=== PATIENT | female | born 1985 | race Caucasian/White ===

== ENCOUNTER 2020-01-03 09:16 | Inpatient (IN) | payer MEDICAID, SELFPAY ==
[2020-01-03 09:30] VITALS: BP 124/89; PULSE 129; RESP 18; TEMP 39.3; O2SAT 99; BMI 31.8
--- NOTE | 2020-01-03 09:43 | XR_ITS ---
EXAMINATION: XR CHEST CLINICAL INFORMATION: Fever COMPARISON: Previous chest x-ray March 2017 TECHNIQUE: Frontal view of the chest was obtained. FINDINGS: No significant abnormality is noted involving the heart, lungs, mediastinum, bony thorax or soft tissues. XR/XR chest 1V IMPRESSION: Unremarkable examination.
--- NOTE | 2020-01-03 09:48 | ED.FEMALEGU ---
HPI - Female Genitourinary General Chief complaint: Urogenital-Female Stated complaint: FEVER HEADACHE CHILLS Time Seen by Provider: 01/03/20 09:42 Source: patient Mode of arrival: ambulatory Limitations: no limitations History of Present Illness HPI Narrative: 34 yo female here with right sided mid to low back pain with fevers, chills, body aches x 5 days. Some urinary frequency. No dysuria/vomiting/diarrhea/abdominal pain. No shortness of breath/chest pain/cough or sore throat. 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 MD elicited complaint: flank pain Onset (ago): day(s) Severity: mild Female Urogenital Radiation: Non-Radiating Quality of pain: sharp Consistency: constant Vaginal discharge: none Vaginal bleeding: none Urinary symptoms: Frequency Exacerbating factors: none Relieving factors: none Associated symptoms: fever and chills Treatment prior to arrival: none Sexual activity: No Patient : No Related Data Home Medications Medication Instructions Recorded Confirmed No Known Home Meds 01/03/20 01/03/20 Allergies Allergy/AdvReac Type Severity Reaction Status Date / Time No Known Allergies Allergy Verified 01/03/20 10:18 Review of Systems Review of Systems: Yes all other systems are reviewed and are negative Constitutional: Constitutional: Reports no additional constitutional complaints, Reports body ache(s), Reports chills, Reports fever(s), Denies headache(s) and Denies weakness Eyes: Eyes: Reports no additional eye complaints and Denies change in vision ENT: Reports system reviewed and no additional complaints, except as documented, Denies dizziness, Denies headache(s), Denies nasal congestion, Denies nasal discharge and Denies neck pain Cardiovascular: Cardiovascular: Reports no additional cardiovascular complaints, Denies chest pain, Denies leg edema and Denies dyspnea Respiratory: Respiratory: Reports no additional respiratory complaints, Denies cough and Denies dyspnea Gastrointestinal: Gastrointestinal: Reports no additional gastrointestinal complaints, Denies abdominal pain, Denies diarrhea, Denies nausea and Denies vomiting Genitourinary: Genitourinary: Reports no additional female genitourinary complaints, Denies dysuria, Reports flank pain, Denies urinary incontinence and Denies vaginal discharge Musculoskeletal: Musculoskeletal: Reports no additional musculoskeletal complaints, Reports back pain, Denies arthralgias, Denies joint swelling, Denies neck pain, Denies numbness and Denies tingling Integumentary/Breasts: Skin/Breast: Reports system reviewed and no additional complaints, except as docu and Denies rash Neurologic: Reports system reviewed and no additional complaints, except as documented, Denies Abnormal speech present, Denies dizziness, Denies headache(s), Denies numbness, Denies tingling and Denies weakness PMFSH Past Medical History Attestation statement: The following information was validated with the patient. Source: obtained from family and nursing notes reviewed Social History Social History Alcohol intake: never Smoking Status: Never smoker Smoked in Last 30 Days: No Use of substances other than those prescribed or required for medical reasons: No Advance Directives: No Advance Directives Information Provided: No Physical Exam Vital Signs: Vital Signs: Last Vital Signs Temp 98.1 F 01/03/20 14:00 Pulse 110 H 01/03/20 14:00 Resp 16 01/03/20 14:00 BP 118/77 01/03/20 14:00 Pulse Ox 100 01/03/20 14:00 Body Mass Index 31.8 Const: General: cooperative, healthy appearing, comfortable and no acute distress Orientation/consciousness: patient oriented x3 Limitations: no limitations HENMT: Head: Yes normal to inspection Ears: hearing grossly normal bilaterally General nose exam: Normal external nose present Face and sinus: Yes normal facial exam Mouth: Normal oral and palatal mucosa present Throat: Yes posterior oropharynx normal Eyes: General: appearance normal, both eyes and all related structures Pupils: Equal, round and reactive pupils present Neck: Neck: Yes normal visual inspection Chest: Chest palpation & inspection: normal inspection of the chest Resp: Effort & Inspection: normal respiratory effort Auscultation: clear to auscultation bilaterally Cardio: Rate: regular rate Rhythm: regular rhythm Peripheral pulses: Peripheral pulses 2+ throughout GI: Inspection: Yes normal to inspection Palpation (GI): Soft to palpation and nontender Auscultation: normal bowel sounds : General: Yes CVA tenderness (right mild, more pain in right lower lumbar paraspinal area ) Back/Spine/Pelvis: Back: CVA tenderness (right mild, more pain in right lower lumbar paraspinal area ) Thoracic/Lumbar Spine: thoracic and lumbar spine normal to inspection Skin: General skin exam: no rashes or lesions noted Neuro: General: patient oriented x3, no focal motor deficits and normal sensation to monofilament Cranial nerves: Yes Equal, round and reactive pupils present Cognition (Neuro): normal cognition Speech: No Abnormal speech present Gait exam (Neuro): Normal gait present Motor exam (neuro): 5/5 motor strength present throughout Extrem: General: Yes normal to inspection Course Course Course Narrative: 34 yo female here with body aches, fevers, chills, and right lower back pain with occasional urinary frequency x 5 days. Arrival the patient is tachycardic and febrile. She does have some right CVA tenderness and right lower lumbar tenderness. No other exam findings. Will check labs including blood cultures and lactic acid. Will check UA, chest x-ray and viral panel. 1050- UA consistent with UTI. Consider pyelonephritis. CT ordered. At this time infection is suspected. Antibiotics ordered. 1200-Ct shows slight asymmetric fat stranding surrounding the right kidney and proximal ureter questionable for pyelonephritis. No stone, hydronephrosis or focal renal lesion seen. C/w with pyelonephritis. Will need admission. Call out to hospitalist to admit. 1215-Discussed patient with Dr Mann who accepted admission. MDM - Female Genitourinary MDM Narrative Medical decision making narrative: considered viral infection, COVID-19 infection, pneumonia, UTI, pyelonephritis Medical Records Attestation: I reviewed the patient's medical records. Lab Data Attestation: I reviewed the patient's lab results. Result diagrams: 01/03/20 09:57 01/03/20 09:57 Labs: Lab Results 01/03/20 01/03/20 01/03/20 Range/Units 09:57 09:57 09:57 WBC 7.9 (4.8-10.8) X10*3/uL RBC 4.36 (4.20-5.50) X10*6/uL Hgb 13.3 (12.0-16.0) g/dl Hct 39.9 (37-47) % MCV 91.5 (80-98) fL MCH 30.5 (27.0-33.0) pg MCHC 33.3 (31.0-35.0) g/dl RDW 11.7 (11.0-16.0) % Plt Count 282 (160-400) X10*3/uL MPV 8.7 L (9.4-12.3) fL Immature Gran % (Auto) 0.3 (0.0-0.4) % Neut % (Auto) 82.1 H (45-73) % Lymph % (Auto) 8.9 L (20-40) % [place] % (Auto) 8.6 (2-11) % Eos % (Auto) 0.0 (0-4) % Baso % (Auto) 0.1 (0-2) % Lymph # (Auto) 0.7 L (1.2-4.9) X10*3/uL [place] # (Auto) 0.7 (0.1-1.2) X10*3/uL Eos # (Auto) 0.0 (0.0-0.4) X10*3/uL Baso # (Auto) 0.0 (0.0-0.2) X10*3/uL Abs Immat Gran (auto) 0.02 (0.00-0.03) X10*3/uL Absolute Neuts (auto) 6.5 (2.0-8.3) X10*3/uL Absolute Nucleated RBC 0.000 (0.0-0.012) X10*3/uL Nucleated RBC % (auto) 0.0 (0.0-0.2) /100WBC Sodium 138 (135-145) mmol/L Potassium 4.2 (3.3-5.1) mmol/l Chloride 101 (96-108) mmol/L Carbon Dioxide 29 (22-29) mmol/L Anion Gap 12 (12-20) BUN 7 L (9-16) mg/dL Creatinine 0.81 (0.5-1.4) mg/dL Estim Creat Clear Calc 100.0 Estimated GFR > 60 Random Glucose 115 (60-115) mg/dL Lactic Acid 1.2 (0.5-2.0) mmol/L Calcium 9.3 (8.4-10.2) mg/dL Magnesium 2.1 (1.6-2.6) mg/dL Total Bilirubin 0.6 (0.0-1.0) mg/dL Direct Bilirubin 0.3 (0.0-0.5) mg/dL AST 14 (5-31) U/L ALT 15 (0-31) U/L Alkaline Phosphatase 72 (39-117) U/L Total Protein 8.3 H (6.5-8.0) g/dL Albumin 4.9 (3.5-5.0) g/dL Urine Color Urine Appearance Urine pH (5.0-8.0) Ur Specific [place] (1.005-1.025) Urine Protein (NEG-TRACE) MG/DL Urine Glucose (UA) (NEG) MG/DL Urine Ketones (NEG) MG/DL Urine Blood (NEG) Urine Nitrite (NEG) Ur Leukocyte Esterase (NEG) Urine RBC (0) /HPF Urine WBC (0-4) /HPF Ur Squamous Epith Cells /LPF Urine Bacteria /LPF Urine Test (NEGATIVE) Respiratory Panel [place] Adenovirus (Rapid PCR) (Not Detect.) B.pert (TEM-PCR) (Not Detect.) B.parapertussis DNA PCR (Not Detect.) C. pneumoniae DNA (PCR) (Not Detect.) Coronavirus OC43 (PCR) (Not Detect.) Coronavirus HKU1 (PCR) (Not Detect.) Coronavirus 229E (PCR) (Not Detect.) Coronavirus NL63 (PCR) (Not Detect.) Human Metapneumovir PCR (Not Detect.) Influenza A (RT-PCR) (Not Detect.) Influenza B (RT-PCR) (Not Detect.) M. pneumoniae (PCR) (Not Detect.) Parainfluenza 1 (PCR) (Not Detect.) Parainfluenza 2 (PCR) (Not Detect.) Parainfluenza 3 (PCR) (Not Detect.) Parainfluenza 4 (PCR) (Not Detect.) RSV (PCR) (Not Detect.) Entero/Rhino (PCR) (Not Detect.) SARS-CoV-2 RNA (RT-PCR) (Not Detect.) 01/03/20 01/03/20 01/03/20 Range/Units 09:57 09:58 09:58 WBC (4.8-10.8) X10*3/uL RBC (4.20-5.50) X10*6/uL Hgb (12.0-16.0) g/dl Hct (37-47) % MCV (80-98) fL MCH (27.0-33.0) pg MCHC (31.0-35.0) g/dl RDW (11.0-16.0) % Plt Count (160-400) X10*3/uL MPV (9.4-12.3) fL Immature Gran % (Auto) (0.0-0.4) % Neut % (Auto) (45-73) % Lymph % (Auto) (20-40) % [place] % (Auto) (2-11) % Eos % (Auto) (0-4) % Baso % (Auto) (0-2) % Lymph # (Auto) (1.2-4.9) X10*3/uL [place] # (Auto) (0.1-1.2) X10*3/uL Eos # (Auto) (0.0-0.4) X10*3/uL Baso # (Auto) (0.0-0.2) X10*3/uL Abs Immat Gran (auto) (0.00-0.03) X10*3/uL Absolute Neuts (auto) (2.0-8.3) X10*3/uL Absolute Nucleated RBC (0.0-0.012) X10*3/uL Nucleated RBC % (auto) (0.0-0.2) /100WBC Sodium (135-145) mmol/L Potassium (3.3-5.1) mmol/l Chloride (96-108) mmol/L Carbon Dioxide (22-29) mmol/L Anion Gap (12-20) BUN (9-16) mg/dL Creatinine (0.5-1.4) mg/dL Estim Creat Clear Calc Estimated GFR Random Glucose (60-115) mg/dL Lactic Acid (0.5-2.0) mmol/L Calcium (8.4-10.2) mg/dL Magnesium (1.6-2.6) mg/dL Total Bilirubin (0.0-1.0) mg/dL Direct Bilirubin (0.0-0.5) mg/dL AST (5-31) U/L ALT (0-31) U/L Alkaline Phosphatase (39-117) U/L Total Protein (6.5-8.0) g/dL Albumin (3.5-5.0) g/dL Urine Color YELLOW Urine Appearance CLOUDY Urine pH 7.5 (5.0-8.0) Ur Specific [place] 1.020 (1.005-1.025) Urine Protein TRACE (NEG-TRACE) MG/DL Urine Glucose (UA) NEG (NEG) MG/DL Urine Ketones NEG (NEG) MG/DL Urine Blood 2+ H (NEG) Urine Nitrite POS H (NEG) Ur Leukocyte Esterase 1+ H (NEG) Urine RBC 10-14 H (0) /HPF Urine WBC 76-150 H (0-4) /HPF Ur Squamous Epith Cells 2+ /LPF Urine Bacteria 4+ /LPF Urine Test NEGATIVE (NEGATIVE) Respiratory Panel [place] See Note Adenovirus (Rapid PCR) Not Detected (Not Detect.) B.pert (TEM-PCR) Not Detected (Not Detect.) B.parapertussis DNA PCR Not Detected (Not Detect.) C. pneumoniae DNA (PCR) Not Detected (Not Detect.) Coronavirus OC43 (PCR) Not Detected (Not Detect.) Coronavirus HKU1 (PCR) Not Detected (Not Detect.) Coronavirus 229E (PCR) Not Detected (Not Detect.) Coronavirus NL63 (PCR) Not Detected (Not Detect.) Human Metapneumovir PCR Not Detected (Not Detect.) Influenza A (RT-PCR) Not Detected (Not Detect.) Influenza B (RT-PCR) Not Detected (Not Detect.) M. pneumoniae (PCR) Not Detected (Not Detect.) Parainfluenza 1 (PCR) Not Detected (Not Detect.) Parainfluenza 2 (PCR) Not Detected (Not Detect.) Parainfluenza 3 (PCR) Not Detected (Not Detect.) Parainfluenza 4 (PCR) Not Detected (Not Detect.) RSV (PCR) Not Detected (Not Detect.) Entero/Rhino (PCR) Not Detected (Not Detect.) SARS-CoV-2 RNA (RT-PCR) Not Detected (Not Detect.) Imaging Data Chest x-ray: Attestation: I personally reviewed and interpreted this imaging study as follows: Radiologist's impression: EXAMINATION: XR CHEST CLINICAL INFORMATION: Fever COMPARISON: Previous chest x-ray March 2017 TECHNIQUE: Frontal view of the chest was obtained. FINDINGS: No significant abnormality is noted involving the heart, lungs, mediastinum, bony thorax or soft tissues. XR/XR chest 1V IMPRESSION: Unremarkable examination. CT scan - abdomen: Attestation: I personally reviewed and interpreted this imaging study as follows: Radiologist's impression: EXAMINATION: CT ABDOMEN AND PELVIS WITHOUT CONTRAST CLINICAL INFORMATION: Urinary tract infection. Evaluate for pyelonephritis. COMPARISON: None TECHNIQUE: Multidetector volumetric imaging was performed from the superior aspect of the liver through the pubic symphysis. Sagittal and coronal reformatted images were obtained on the technologist's workstation. This CT examination was performed using dose optimization techniques as appropriate, variously including the following: *Automated exposure control *Adjustment of mA and/or kV according to patient size (this includes techniques or standardized protocols for targeted exams where dose is matched to indication/reason for exam; i.e. extremities or head) *Use of iterative reconstruction technique DLP: 667 mGy-cm FINDINGS: LUNG BASES: The visualized lung bases are unremarkable. LIVER, GALLBLADDER, AND BILIARY TREE: The liver is normal in size, shape, and attenuation. No focal hepatic lesion or biliary ductal dilatation is present. The gallbladder is unremarkable with no evidence of radiopaque gallstones, gallbladder wall thickening, or obvious pericholecystic inflammatory changes. PANCREAS: Unremarkable. SPLEEN: Unremarkable. ADRENAL GLANDS: Unremarkable. KIDNEYS AND URETERS: There is a slight asymmetric fat stranding seen surrounding the right kidney and proximal ureter questionable for pyelonephritis. No stone or hydronephrosis is seen. No focal renal lesion is seen. BLADDER: Unremarkable. GASTROINTESTINAL TRACT: The small and large bowel are unremarkable. The appendix is unremarkable. ABDOMINAL WALL: No significant hernia is appreciated. LYMPH NODES: Normal. VASCULAR: Unremarkable. PELVIC VISCERA: Unremarkable. OSSEOUS STRUCTURES: Unremarkable. CT/CT abdomen pelvis wo con IMPRESSION: Slight asymmetric fat stranding surrounding the right kidney and proximal ureter questionable for pyelonephritis. No stone, hydronephrosis or focal renal lesion seen. Discharge Plan Discharge Clinical Impression: Pyelonephritis, Sepsis Patient Disposition: Admitted As Inpatient
[2020-01-03 10:06] LABS: Adenovirus PCR Not Detected (Not Detect.); Bordetella parapertussis PCR Not Detected (Not Detect.); Bordetella pertussis PCR Not Detected (Not Detect.); Chlamydia pneumoniae PCR Not Detected (Not Detect.); Coronavirus 229E PCR Not Detected (Not Detect.); Coronavirus HKU1 PCR Not Detected (Not Detect.); Coronavirus NL63 PCR Not Detected (Not Detect.); Coronavirus OC43 PCR Not Detected (Not Detect.); Human metapneumovirus PCR Not Detected (Not Detect.); Influenza A PCR Not Detected (Not Detect.); Influenza B PCR Not Detected (Not Detect.); Mycoplasma pneumoniae PCR Not Detected (Not Detect.); Parainfluenza 1 PCR Not Detected (Not Detect.); Parainfluenza 2 PCR Not Detected (Not Detect.); Parainfluenza 3 PCR Not Detected (Not Detect.); Parainfluenza 4 PCR Not Detected (Not Detect.); RSV PCR Not Detected (Not Detect.); Rhino/Enterovirus PCR Not Detected (Not Detect.); SARS-CoV-2 PCR Not Detected (Not Detect.)
[2020-01-03 10:08] LABS: MANUAL DIFF FLAG NO
[2020-01-03] MEDS: Acetaminophen 325 MG TABLET 975 MG PO ×2 (10:08→15:03)
[2020-01-03] MEDS: 0.9 % Sodium Chloride 1,000 ML 999 ML IV (10:09)
[2020-01-03 10:14] LABS: Glucose Urine UA NEG (NEG); Leukocyte Esterase Urine 1+ (NEG); Nitrite Urine POS (NEG); PH 7.5 (5.0-8.0); Urine Blood 2+ (NEG); Urine Ketones NEG (NEG); Urine Protein TRACE MG/DL (NEG-TRACE)
[2020-01-03 10:17] LABS: Appearance Urine CLOUDY; Color Urine YELLOW
[2020-01-03 10:18] LABS: UPreg QC Valid YES; Urine Pregnancy NEGATIVE (NEGATIVE)
[2020-01-03 10:23] LABS: Bacteria Urine 4+ /LPF; Squamous Epithelial Cell Urine 2+ /LPF
[2020-01-03 10:30] LABS: Lactic Acid 1.2 mmol/L (0.5-2.0)
[2020-01-03 10:37] LABS: Alanine Aminotransferase 15 U/L (0-31); Albumin Level 4.9 g/dL (3.5-5.0); Alkaline Phosphatase 72 U/L (39-117); Anion Gap 12 (12-20); Aspartate Amino Transferase 14 U/L (5-31); Bilirubin Direct 0.3 mg/dL (0.0-0.5); Bilirubin Total 0.6 mg/dL (0.0-1.0); Blood Urea Nitrogen 7 mg/dL (9-16); Calcium 9.3 mg/dL (8.4-10.2); Carbon Dioxide 29 mmol/L (22-29); Chloride 101 mmol/L (96-108); Estimated Glomerular Filt Rate > 60; Glucose Random 115 mg/dL (60-115); Magnesium 2.1 mg/dL (1.6-2.6); Potassium 4.2 mmol/l (3.3-5.1); Sodium 138 mmol/L (135-145); Total Protein 8.3 g/dL (6.5-8.0)
[2020-01-03 10:41] LABS: Basophils Percent Auto 0.1 % (0-2); Hematocrit 39.9 % (37-47); Hemoglobin 13.3 g/dl (12.0-16.0); Imm Gran Abs Auto 0.02 X10*3/uL (0.00-0.03); Imm Gran Pct Auto 0.3 % (0.0-0.4); Lymphocytes Absolute Auto 0.7 X10*3/uL (1.2-4.9); Lymphocytes Percent Auto 8.9 % (20-40); Mean Corpuscular HGB Conc 33.3 g/dl (31.0-35.0); Mean Corpuscular Hemoglobin 30.5 pg (27.0-33.0); Mean Corpuscular Volume 91.5 fL (80-98); Mean Platelet Volume 8.7 fL (9.4-12.3); Monocytes Absolute Auto 0.7 X10*3/uL (0.1-1.2); Monocytes Percent Auto 8.6 % (2-11); Neutrophils Absolute Auto 6.5 X10*3/uL (2.0-8.3); Neutrophils Percent Auto 82.1 % (45-73); Platelet Count 282 X10*3/uL (160-400); Red Blood Count 4.36 X10*6/uL (4.20-5.50); Red Cell Distribution Width 11.7 % (11.0-16.0); White Blood Count 7.9 X10*3/uL (4.8-10.8)
--- NOTE | 2020-01-03 10:53 | CT_ITS ---
EXAMINATION: CT ABDOMEN AND PELVIS WITHOUT CONTRAST CLINICAL INFORMATION: Urinary tract infection. Evaluate for pyelonephritis. COMPARISON: None TECHNIQUE: Multidetector volumetric imaging was performed from the superior aspect of the liver through the pubic symphysis. Sagittal and coronal reformatted images were obtained on the technologist's workstation. This CT examination was performed using dose optimization techniques as appropriate, variously including the following: *Automated exposure control *Adjustment of mA and/or kV according to patient size (this includes techniques or standardized protocols for targeted exams where dose is matched to indication/reason for exam; i.e. extremities or head) *Use of iterative reconstruction technique DLP: 667 mGy-cm FINDINGS: LUNG BASES: The visualized lung bases are unremarkable. LIVER, GALLBLADDER, AND BILIARY TREE: The liver is normal in size, shape, and attenuation. No focal hepatic lesion or biliary ductal dilatation is present. The gallbladder is unremarkable with no evidence of radiopaque gallstones, gallbladder wall thickening, or obvious pericholecystic inflammatory changes. PANCREAS: Unremarkable. SPLEEN: Unremarkable. ADRENAL GLANDS: Unremarkable. KIDNEYS AND URETERS: There is a slight asymmetric fat stranding seen surrounding the right kidney and proximal ureter questionable for pyelonephritis. No stone or hydronephrosis is seen. No focal renal lesion is seen. BLADDER: Unremarkable. GASTROINTESTINAL TRACT: The small and large bowel are unremarkable. The appendix is unremarkable. ABDOMINAL WALL: No significant hernia is appreciated. LYMPH NODES: Normal. VASCULAR: Unremarkable. PELVIC VISCERA: Unremarkable. OSSEOUS STRUCTURES: Unremarkable. CT/CT abdomen pelvis wo con IMPRESSION: Slight asymmetric fat stranding surrounding the right kidney and proximal ureter questionable for pyelonephritis. No stone, hydronephrosis or focal renal lesion seen.
[2020-01-03 10:56] VITALS: BP 127/67; PULSE 111; RESP 18; TEMP 38; O2SAT 97
[2020-01-03] MEDS: cefTRIAXone sodium 2 GM in 0.9 % Sodium Chloride 50 ML IV (11:10)
[2020-01-03] MEDS: Ketorolac Tromethamine 30 MG/ML VIAL IVPUSH (11:10)
--- NOTE | 2020-01-03 13:45 | P.HPHOSP_ITS ---
History of Present Illness Date of Service: 01/03/20 Chief Complaint: flank pain 34-year-old female with no significant past medical history presented with right sided back pain that started Monday associated with urinary frequency and burning, patient started having fever since yesterday, in the ER patient found to have fever of 102 , CT abdomen shows right-sided pyelonephritis, UA was positive, patient was given 1 dose of Rocephin cultures were sent, inpatient admission was requested patient denies any sick contact Review of Systems Constitutional: Constitutional: Denies headache(s) and Denies weakness ENT: Denies dizziness and Denies headache(s) Cardiovascular: Cardiovascular: Denies dyspnea Respiratory: Respiratory: Denies dyspnea Gastrointestinal: Gastrointestinal: Reports abdominal pain and Denies vomiting Musculoskeletal: Musculoskeletal: Denies numbness and Denies tingling Neurologic: Reports system reviewed and no additional complaints, except as documented, Denies Abnormal speech present, Denies dizziness, Denies headache(s), Denies numbness, Denies tingling and Denies weakness PMFSH Functional capacity: independent ambulation Family History (Updated 01/03/20 @ 17:21 by Duke Mann MD) Other Hypertension No active medical problems Social History Alcohol intake: never Smoking Status: Never smoker Smoked in Last 30 Days: No Use of substances other than those prescribed or required for medical reasons: No Advance Directives: No Advance Directives Information Provided: No Meds Allergies Allergy/AdvReac Type Severity Reaction Status Date / Time No Known Allergies Allergy Verified 01/03/20 10:18 Home Medications Medication Instructions Recorded Confirmed Type No Known Home Meds 01/03/20 01/03/20 History Physical Exam Vital Signs and Narrative: Vital Signs: Last Vital Signs Temp 100.4 F 01/03/20 10:56 Pulse 111 H 01/03/20 10:56 Resp 18 01/03/20 10:56 BP 127/67 01/03/20 10:56 Pulse Ox 97 01/03/20 10:56 Body Mass Index 31.8 Const: General: no acute distress Neck: Yes normal visual inspection Chest: Chest palpation & inspection: normal inspection of the chest Resp: Effort & Inspection: normal respiratory effort Cardio: Jugular venous distension: no JVD Heart sounds: S1 normal heart sound present and S2 normal heart sound present : General: Yes CVA tenderness Back/Spine/Pelvis: Back: CVA tenderness Skin: General skin exam: no rashes or lesions noted Neuro: Speech: No Abnormal speech present Results Labs CBC and Chem 7: 01/03/20 09:57 01/03/20 09:57 Labs: Laboratory Results - last 24 hr 01/03/20 01/03/20 01/03/20 09:57 09:57 09:57 MCV 91.5 MCH 30.5 MCHC 33.3 RDW 11.7 Plt Count 282 MPV 8.7 L Immature Gran % (Auto) 0.3 Neut % (Auto) 82.1 H Lymph % (Auto) 8.9 L [place] % (Auto) 8.6 Eos % (Auto) 0.0 Baso % (Auto) 0.1 Lymph # (Auto) 0.7 L [place] # (Auto) 0.7 Eos # (Auto) 0.0 Baso # (Auto) 0.0 Abs Immat Gran (auto) 0.02 Absolute Neuts (auto) 6.5 Absolute Nucleated RBC 0.000 Nucleated RBC % (auto) 0.0 Anion Gap 12 Estim Creat Clear Calc 100.0 Estimated GFR > 60 Random Glucose 115 Lactic Acid 1.2 Calcium 9.3 Magnesium 2.1 Total Bilirubin 0.6 Direct Bilirubin 0.3 AST 14 ALT 15 Alkaline Phosphatase 72 Total Protein 8.3 H Albumin 4.9 Urine Color Urine Appearance Urine pH Ur Specific [place] Urine Protein Urine Glucose (UA) Urine Ketones Urine Blood Urine Nitrite Ur Leukocyte Esterase Urine RBC Urine WBC Ur Squamous Epith Cells Urine Bacteria Urine Test Respiratory Panel [place] Adenovirus (Rapid PCR) B.pert (TEM-PCR) B.parapertussis DNA PCR C. pneumoniae DNA (PCR) Coronavirus OC43 (PCR) Coronavirus HKU1 (PCR) Coronavirus 229E (PCR) Coronavirus NL63 (PCR) Human Metapneumovir PCR Influenza A (RT-PCR) Influenza B (RT-PCR) M. pneumoniae (PCR) Parainfluenza 1 (PCR) Parainfluenza 2 (PCR) Parainfluenza 3 (PCR) Parainfluenza 4 (PCR) RSV (PCR) Entero/Rhino (PCR) SARS-CoV-2 RNA (RT-PCR) 01/03/20 01/03/20 01/03/20 09:57 09:58 09:58 MCV MCH MCHC RDW Plt Count MPV Immature Gran % (Auto) Neut % (Auto) Lymph % (Auto) [place] % (Auto) Eos % (Auto) Baso % (Auto) Lymph # (Auto) [place] # (Auto) Eos # (Auto) Baso # (Auto) Abs Immat Gran (auto) Absolute Neuts (auto) Absolute Nucleated RBC Nucleated RBC % (auto) Anion Gap Estim Creat Clear Calc Estimated GFR Random Glucose Lactic Acid Calcium Magnesium Total Bilirubin Direct Bilirubin AST ALT Alkaline Phosphatase Total Protein Albumin Urine Color YELLOW Urine Appearance CLOUDY Urine pH 7.5 Ur Specific [place] 1.020 Urine Protein TRACE Urine Glucose (UA) NEG Urine Ketones NEG Urine Blood 2+ H Urine Nitrite POS H Ur Leukocyte Esterase 1+ H Urine RBC 10-14 H Urine WBC 76-150 H Ur Squamous Epith Cells 2+ Urine Bacteria 4+ Urine Test NEGATIVE Respiratory Panel [place] See Note Adenovirus (Rapid PCR) Not Detected B.pert (TEM-PCR) Not Detected B.parapertussis DNA PCR Not Detected C. pneumoniae DNA (PCR) Not Detected Coronavirus OC43 (PCR) Not Detected Coronavirus HKU1 (PCR) Not Detected Coronavirus 229E (PCR) Not Detected Coronavirus NL63 (PCR) Not Detected Human Metapneumovir PCR Not Detected Influenza A (RT-PCR) Not Detected Influenza B (RT-PCR) Not Detected M. pneumoniae (PCR) Not Detected Parainfluenza 1 (PCR) Not Detected Parainfluenza 2 (PCR) Not Detected Parainfluenza 3 (PCR) Not Detected Parainfluenza 4 (PCR) Not Detected RSV (PCR) Not Detected Entero/Rhino (PCR) Not Detected SARS-CoV-2 RNA (RT-PCR) Not Detected Imaging Radiologist's Impressions: Impressions Chest X-Ray 01/03/20 09:43 IMPRESSION: Unremarkable examination. Abdomen/Pelvis CT 01/03/20 10:53 IMPRESSION: Slight asymmetric fat stranding surrounding the right kidney and proximal ureter questionable for pyelonephritis. No stone, hydronephrosis or focal renal lesion seen. Assessment and Plan (1) Sepsis: Status: Acute (2) Pyelonephritis: Status: Acute sepsis secondary to pyelonephritis continue IV Rocephin lactic acid normal continue IV fluids follow-up urine and blood cultures DVT prophylaxis heparin subcu
[2020-01-03 14:00] VITALS: BP 118/77; PULSE 110; RESP 16; TEMP 36.7; O2SAT 100
[2020-01-03 15:50] VITALS: BP 141/80; PULSE 120; RESP 18; TEMP 38.6; O2SAT 97
[2020-01-03] MEDS: 0.9 % Sodium Chloride 1,000 ML 100 ML IVCONT (17:28)
[2020-01-03] MEDS: 0.9 % Sodium Chloride Flush 3 ML SYRINGE IVFLUSH (17:31)
[2020-01-03] MEDS: Heparin Sodium,Porcine 5,000 UNIT/ML VIAL 5000 UNIT SUBCUT (17:31)
[2020-01-03 19:26] VITALS: BP 135/87; PULSE 114; RESP 18; TEMP 38.8; O2SAT 99
[2020-01-03] MEDS: Acetaminophen 325 MG TABLET 650 MG PO (21:05)
[2020-01-03] MEDS: Morphine Sulfate 2 MG/ML CARTRIDGE 1 MG IVPUSH (21:06)
--- NOTE | 2020-01-03 21:38 | MHC.PIE ---
p; pt c/o pain rt flank, pt temp 101.7. note; no prn tylenol or pain med? i; dr reynolds notifed; new order tylenol 650 mg po now, morphine 1mg iv now e; will con to monitor
[2020-01-03 23:35] VITALS: BP 119/71; PULSE 108; RESP 18; TEMP 36.1; O2SAT 97
[2020-01-04] VITALS (7 sets, daily range): BP systolic 109–131; BP diastolic 67–82; PULSE 79–114; RESP 16–18; TEMP 36.1–38.7; O2SAT 95–98
[2020-01-04] MEDS: 0.9 % Sodium Chloride 1,000 ML 100 ML IVCONT ×3 (03:19→22:54)
[2020-01-04] MEDS: Acetaminophen 325 MG TABLET 650 MG PO ×3 (04:20→23:41)
--- NOTE | 2020-01-04 06:29 | MHC.PIE ---
p;0402; t 101.6 i; dr reynolds notified; new order tylenol 650mg po now e; temp 97.8. will cont to monitor
[2020-01-04 08:42] LABS: MANUAL DIFF FLAG NO
[2020-01-04 08:51] LABS: Basophils Percent Auto 0.1 % (0-2); Eosinophils Percent Auto 0.1 % (0-4); Hemoglobin 11.8 g/dl (12.0-16.0); Imm Gran Abs Auto 0.03 X10*3/uL (0.00-0.03); Imm Gran Pct Auto 0.4 % (0.0-0.4); Lymphocytes Absolute Auto 1.3 X10*3/uL (1.2-4.9); Lymphocytes Percent Auto 16.7 % (20-40); Mean Corpuscular HGB Conc 32.8 g/dl (31.0-35.0); Mean Corpuscular Hemoglobin 30.3 pg (27.0-33.0); Mean Corpuscular Volume 92.5 fL (80-98); Mean Platelet Volume 8.5 fL (9.4-12.3); Monocytes Absolute Auto 0.9 X10*3/uL (0.1-1.2); Monocytes Percent Auto 10.7 % (2-11); Neutrophils Absolute Auto 5.8 X10*3/uL (2.0-8.3); Platelet Count 249 X10*3/uL (160-400); Red Blood Count 3.89 X10*6/uL (4.20-5.50); Red Cell Distribution Width 11.9 % (11.0-16.0)
[2020-01-04 09:34] LABS: Anion Gap 10 (12-20); Blood Urea Nitrogen 7 mg/dL (9-16); Carbon Dioxide 28 mmol/L (22-29); Chloride 102 mmol/L (96-108); Creatinine Clr Calc Pharmacy 117.3; Estimated Glomerular Filt Rate > 60; Glucose Random 94 mg/dL (60-115); Potassium 3.6 mmol/l (3.3-5.1); Sodium 136 mmol/L (135-145)
[2020-01-04 09:53] LABS: Calcium 8.3 mg/dL (8.4-10.2)
--- NOTE | 2020-01-04 11:10 | MHC.CM.PN ---
PATIENT IS FULLY INDEPENDENT WITH NO DME SPOUSE WILL TRANSPORT HER HOME. PLAN IS NO SERVICES PATIENT STATES THAT SHE WAS TOLD THAT SHE MAY DISCHARGE BY MONDAY, BUT HAS NOT YET BEEN TOLD IF THAT WILL CHANGE. AVE HAS COPY OF HER COVID RESULTS PER WORK REQUEST. WORK IS ALSO ASKING FOR A NOTE FROM THE HOSPITALIST INDICATING HER LENGTH OF STAY AND ANY RESTRICTIONS.
[2020-01-04] MEDS: cefTRIAXone sodium 1 GM in 0.9 % Sodium Chloride 50 ML IV (11:43)
--- NOTE | 2020-01-04 12:00 | HO.PM.IMPN ---
Subjective Subjective Date of Service: 01/04/20 Interval History: Patient seen and examined at bedside, patient reported flank pain Constitutional Constitutional: Denies headache(s) and Denies weakness ENT Ears, Nose, Mouth, and Throat: Denies dizziness and Denies headache(s) Cardiovascular Cardiovascular: Denies dyspnea Respiratory Respiratory: Denies dyspnea Gastrointestinal Gastrointestinal: Reports abdominal pain and Denies vomiting Musculoskeletal Musculoskeletal: Denies numbness and Denies tingling Neurologic Neurologic: Reports system reviewed and no additional complaints, except as documented, Denies Abnormal speech present, Denies dizziness, Denies headache(s), Denies numbness, Denies tingling and Denies weakness Physical Exam Vital Signs: Vital Signs: Last Vital Signs Temp 98.9 F 01/04/20 11:48 Pulse 98 01/04/20 11:48 Resp 16 01/04/20 11:48 BP 109/80 01/04/20 11:48 Pulse Ox 98 01/04/20 11:48 Body Mass Index 31.8 Const: General: no acute distress Neck: Neck: Yes normal visual inspection Chest: Chest palpation & inspection: normal inspection of the chest Resp: Effort & Inspection: normal respiratory effort Cardio: Jugular venous distension: no JVD Heart sounds: S1 normal heart sound present and S2 normal heart sound present : General: Yes CVA tenderness Back/Spine/Pelvis: Back: CVA tenderness Skin: General skin exam: no rashes or lesions noted Neuro: Speech: No Abnormal speech present Objective Data Current Medications Generic Name Dose Route Start Last Admin Trade Name Freq PRN Reason Stop Dose Admin Acetaminophen 650 mg 01/04/20 11:45 Acetaminophen 325 Mg Tablet PO Q6H PRN Fever Heparin Sodium (Porcine) 5,000 unit 01/03/20 16:00 01/04/20 03:21 Heparin Sodium,Porcine 5,000 Unit/Ml Vial SUBCUT Not Given Q12H BLAINE Sodium Chloride 1,000 mls @ 100 mls/hr 01/03/20 15:09 01/04/20 11:27 Ns IVCONT Not Given .Q10H BLAINE Ceftriaxone Sodium 1 gm/ 50 mls @ 100 mls/hr 01/04/20 12:00 01/04/20 11:43 Sodium Chloride IV 100 mls/hr Q24H BLAINE Administration Oxycodone HCl 5 mg 01/04/20 11:45 Oxycodone Hcl Immed Release 5 Mg Tablet PO Q6H PRN Pain, Moderate (Pain Scale 4-6 Pharmacy Consult 1 each 01/03/20 11:48 Consult Rx Perform Med Rec MISCELLANE ONCE PRN Consult order Sodium Chloride 3 ml 01/03/20 16:00 01/04/20 07:27 0.9 % Sodium Chloride Flush 3 Ml Syringe IVFLUSH Not Given QSHIFT BLAINE Labs CBC & Chem 7: 01/04/20 08:10 01/04/20 08:10 Microbiology Microbiology Results: Microbiology 01/03/20 11:09 Urine clean catch - Clean Catch Midstream Urine Culture - Preliminary Gram negative alisia Assessment and Plan (1) Sepsis: Status: Acute (2) Pyelonephritis: Status: Acute Assessment and Plan: Sepsis secondary to pyelonephritis continue IV Rocephin continue IV fluids urine and blood culture pending continue pain medication DVT prophylaxis heparin subcu
[2020-01-04] MEDS: oxyCODONE HCl Immed Release 5 MG TABLET PO ×2 (12:21→18:21)
--- NOTE | 2020-01-04 12:55 | MHC.CM.PN ---
PATIENT'S PCP RECENTLY LEFT [facility] SHE DOES NOT RECALL THE PROVIDER NOW ASSIGNED TO HER CARE. CM OFFICE UPDATED IN [facility].
[2020-01-05 03:34] VITALS: BP 115/70; PULSE 78; RESP 17; TEMP 36.1; O2SAT 97
[2020-01-05 07:14] VITALS: BP 124/70; PULSE 79; RESP 18; TEMP 36.4; O2SAT 97
[2020-01-05] MEDS: oxyCODONE HCl Immed Release 5 MG TABLET PO (07:56)
[2020-01-05] MEDS: 0.9 % Sodium Chloride 1,000 ML 100 ML IVCONT (09:19)
--- NOTE | 2020-01-05 10:41 | P.DS_ITS ---
DS: Providers Provider Date of admission: 01/03/20 13:42 Primary care physician: Unknown Physician DS: Diagnosis Discharge Diagnosis (1) Sepsis: Status: Acute (2) Pyelonephritis: Status: Acute DS: Medications Discharge Medications Home Medications: Previous Rx's Medication Instructions Recorded cefuroxime axetil 500 mg PO BID 10 Days #20 tab 01/05/20 DS: Summary Hospital Course Hospital Course: 34-year-old female admitted with sepsis secondary to pyelonephritis, was started on IV Rocephin supportive management, blood culture and urine culture were sent, sepsis resolved, blood cultures were negative, urine culture grew E coli, patient was stable discharged home on p.o. Ceftin Time Spent with Patient Time attestation: Total time spent providing and/or coordinating discharge services: Physical Exam Vital Signs: Vital Signs: Last Vital Signs Temp 97.5 F 01/05/20 07:14 Pulse 79 01/05/20 07:14 Resp 18 01/05/20 07:14 BP 124/70 01/05/20 07:14 Pulse Ox 97 01/05/20 07:14 Body Mass Index 31.8 Const: Other: Last Vital Signs Temp 97.5 F 01/05/20 07:14 Pulse 79 01/05/20 07:14 Resp 18 01/05/20 07:14 BP 124/70 01/05/20 07:14 Pulse Ox 97 01/05/20 07:14 Body Mass Index 31.8 General: no acute distress Neck: Neck: Yes normal visual inspection Chest: Chest palpation & inspection: normal inspection of the chest Resp: Effort & Inspection: normal respiratory effort Cardio: Other: Last Vital Signs Temp 97.5 F 01/05/20 07:14 Pulse 79 01/05/20 07:14 Resp 18 01/05/20 07:14 BP 124/70 01/05/20 07:14 Pulse Ox 97 01/05/20 07:14 Body Mass Index 31.8 Jugular venous distension: no JVD Heart sounds: S1 normal heart sound present and S2 normal heart sound present : General: Yes CVA tenderness Back/Spine/Pelvis: Back: CVA tenderness Skin: General skin exam: no rashes or lesions noted Neuro: Speech: No Abnormal speech present DS: Data Data Completed and Pending Labs on day of discharge: 01/03/20 09:42 0.9 % Sodium Chloride [Ns] 1,000 ml IV 999 mls/hr 01/03/20 09:43 XR chest 1V Stat Acetaminophen [Tylenol] 975 mg PO ONCE ONE 01/03/20 09:57 Basic Metabolic Panel Stat Complete Blood Count Auto Diff Stat Lactic Acid Stat Liver Panel Stat Magnesium Stat 01/03/20 09:58 Respiratory Panel Stat Ur Preg Test Stat 01/03/20 10:53 CT abdomen pelvis wo con Stat 01/03/20 10:54 Ketorolac Tromethamine [Toradol] 30 mg IVPUSH ONCE ONE cefTRIAXone sodium [Rocephin] 2 gm 0.9 % Sodium Chloride [Ns] 50 ml IV ONCE 01/03/20 11:00 cefTRIAXone sodium [Rocephin] 2 gm .ROUTE .STK-MED ONE 01/03/20 11:09 Urine Culture Routine 01/03/20 13:40 Transfer Order Routine 01/03/20 14:57 Acetaminophen [Tylenol] 975 mg PO ONCE ONE 01/03/20 19:39 Acetaminophen [Tylenol] 650 mg PO ONCE ONE Morphine Sulfate 1 mg IVPUSH ONCE ONE 01/04/20 03:45 Acetaminophen [Tylenol] 650 mg PO ONCE ONE 01/04/20 08:10 Basic Metabolic Panel DAILY@0600 Complete Blood Count Auto Diff DAILY@0600 01/04/20 11:38 cefTRIAXone sodium [Rocephin] 1 gm .ROUTE .STK-MED ONE Laboratory Last Values WBC 8.0 X10*3/uL (4.8-10.8) 01/04/20 08:10 RBC 3.89 X10*6/uL (4.20-5.50) L 01/04/20 08:10 Hgb 11.8 g/dl (12.0-16.0) L 01/04/20 08:10 Hct 36.0 % (37-47) L 01/04/20 08:10 MCV 92.5 fL (80-98) 01/04/20 08:10 MCH 30.3 pg (27.0-33.0) 01/04/20 08:10 MCHC 32.8 g/dl (31.0-35.0) 01/04/20 08:10 RDW 11.9 % (11.0-16.0) 01/04/20 08:10 Plt Count 249 X10*3/uL (160-400) 01/04/20 08:10 MPV 8.5 fL (9.4-12.3) L 01/04/20 08:10 Immature Gran % (Auto) 0.4 % (0.0-0.4) 01/04/20 08:10 Neut % (Auto) 72.0 % (45-73) 01/04/20 08:10 Lymph % (Auto) 16.7 % (20-40) L 01/04/20 08:10 [place] % (Auto) 10.7 % (2-11) 01/04/20 08:10 Eos % (Auto) 0.1 % (0-4) 01/04/20 08:10 Baso % (Auto) 0.1 % (0-2) 01/04/20 08:10 Lymph # (Auto) 1.3 X10*3/uL (1.2-4.9) 01/04/20 08:10 [place] # (Auto) 0.9 X10*3/uL (0.1-1.2) 01/04/20 08:10 Eos # (Auto) 0.0 X10*3/uL (0.0-0.4) 01/04/20 08:10 Baso # (Auto) 0.0 X10*3/uL (0.0-0.2) 01/04/20 08:10 Abs Immat Gran (auto) 0.03 X10*3/uL (0.00-0.03) 01/04/20 08:10 Absolute Neuts (auto) 5.8 X10*3/uL (2.0-8.3) 01/04/20 08:10 Absolute Nucleated RBC 0.000 X10*3/uL (0.0-0.012) 01/04/20 08:10 Nucleated RBC % (auto) 0.0 /100WBC (0.0-0.2) 01/04/20 08:10 Sodium 136 mmol/L (135-145) 01/04/20 08:10 Potassium 3.6 mmol/l (3.3-5.1) 01/04/20 08:10 Chloride 102 mmol/L (96-108) 01/04/20 08:10 Carbon Dioxide 28 mmol/L (22-29) 01/04/20 08:10 Anion Gap 10 (12-20) L 01/04/20 08:10 BUN 7 mg/dL (9-16) L 01/04/20 08:10 Creatinine 0.69 mg/dL (0.5-1.4) 01/04/20 08:10 Estim Creat Clear Calc 117.3 01/04/20 08:10 Estimated GFR > 60 01/04/20 08:10 Random Glucose 94 mg/dL (60-115) 01/04/20 08:10 Lactic Acid 1.2 mmol/L (0.5-2.0) 01/03/20 09:57 Calcium 8.3 mg/dL (8.4-10.2) L D 01/04/20 08:10 Magnesium 2.1 mg/dL (1.6-2.6) 01/03/20 09:57 Total Bilirubin 0.6 mg/dL (0.0-1.0) 01/03/20 09:57 Direct Bilirubin 0.3 mg/dL (0.0-0.5) 01/03/20 09:57 AST 14 U/L (5-31) 01/03/20 09:57 ALT 15 U/L (0-31) 01/03/20 09:57 Alkaline Phosphatase 72 U/L (39-117) 01/03/20 09:57 Total Protein 8.3 g/dL (6.5-8.0) H 01/03/20 09:57 Albumin 4.9 g/dL (3.5-5.0) 01/03/20 09:57 Urine Color YELLOW 01/03/20 09:57 Urine Appearance CLOUDY 01/03/20 09:57 Urine pH 7.5 (5.0-8.0) 01/03/20 09:57 Ur Specific Model 1.020 (1.005-1.025) 01/03/20 09:57 Urine Protein TRACE MG/DL (NEG-TRACE) 01/03/20 09:57 Urine Glucose (UA) NEG MG/DL (NEG) 01/03/20 09:57 Urine Ketones NEG MG/DL (NEG) 01/03/20 09:57 Urine Blood 2+ (NEG) H 01/03/20 09:57 Urine Nitrite POS (NEG) H 01/03/20 09:57 Ur Leukocyte Esterase 1+ (NEG) H 01/03/20 09:57 Urine RBC 10-14 /HPF (0) H 01/03/20 09:57 Urine WBC 76-150 /HPF (0-4) H 01/03/20 09:57 Ur Squamous Epith Cells 2+ /LPF 01/03/20 09:57 Urine Bacteria 4+ /LPF 01/03/20 09:57 Urine Test NEGATIVE (NEGATIVE) 01/03/20 09:58 Respiratory Panel Ferguson See Note 01/03/20 09:58 Adenovirus (Rapid PCR) Not Detected (Not Detect.) 01/03/20 09:58 B.pert (TEM-PCR) Not Detected (Not Detect.) 01/03/20 09:58 B.parapertussis DNA PCR Not Detected (Not Detect.) 01/03/20 09:58 C. pneumoniae DNA (PCR) Not Detected (Not Detect.) 01/03/20 09:58 Coronavirus OC43 (PCR) Not Detected (Not Detect.) 01/03/20 09:58 Coronavirus HKU1 (PCR) Not Detected (Not Detect.) 01/03/20 09:58 Coronavirus 229E (PCR) Not Detected (Not Detect.) 01/03/20 09:58 Coronavirus NL63 (PCR) Not Detected (Not Detect.) 01/03/20 09:58 Human Metapneumovir PCR Not Detected (Not Detect.) 01/03/20 09:58 Influenza A (RT-PCR) Not Detected (Not Detect.) 01/03/20 09:58 Influenza B (RT-PCR) Not Detected (Not Detect.) 01/03/20 09:58 M. pneumoniae (PCR) Not Detected (Not Detect.) 01/03/20 09:58 Parainfluenza 1 (PCR) Not Detected (Not Detect.) 01/03/20 09:58 Parainfluenza 2 (PCR) Not Detected (Not Detect.) 01/03/20 09:58 Parainfluenza 3 (PCR) Not Detected (Not Detect.) 01/03/20 09:58 Parainfluenza 4 (PCR) Not Detected (Not Detect.) 01/03/20 09:58 RSV (PCR) Not Detected (Not Detect.) 01/03/20 09:58 Entero/Rhino (PCR) Not Detected (Not Detect.) 01/03/20 09:58 SARS-CoV-2 RNA (RT-PCR) Not Detected (Not Detect.) 01/03/20 09:58 Preliminary micro results at discharge 01/03/20 11:09 Blood Culture - Preliminary Blood - Venous No growth after 24 hours. 01/03/20 09:57 Blood Culture - Preliminary Blood - Venous No growth after 24 hours. Discharge Plan Discharge Anticipated Discharge Date/Time: 01/05/20 10:21 Patient Disposition: Home, Self-Care Referrals: Physician,Unknown [Primary Care Provider] - Discharge Medications: New cefuroxime axetil 500 mg tablet 500 mg PO BID 10 Days Qty: 20 RF: 0 Discharge Orders: Discharge Order (Routine); Ordered 01/05/20 Ordered By: Duke Mann Diet: advance to usual diet Activity on Discharge: As tolerated Stand Alone Forms: Work/School Release Discharge Date/Time: 01/05/20 12:25 Visit Report Forms: Patient Portal Discharge page Care Plan Goals: treat pyelonephritis Health Concerns: pyelonephritis Plan of Treatment: p.o. antibiotic
--- NOTE | 2020-01-05 10:41 | MHC.CM.PN ---
PATIENT IS DISCHARGED HOME - SELF CARE. RN AWARE OF PLAN. PATIENT'S SPOUSE TO PROVIDE TRANSPORT.
[2020-01-05 11:03] VITALS: BP 130/89; PULSE 86; RESP 18; TEMP 36.3; O2SAT 98
[2020-01-05] MEDS: cefTRIAXone sodium 1 GM in 0.9 % Sodium Chloride 50 ML IV (11:12)
== END 2020-01-05 12:25 | disposition home or self-care (01) | DRG 720 ==
LOC: HO.ED 12:14 → HO.S3 14:14
PROVIDERS: Nurse Practitioner Family; Admitting Provider Internal Medicine; Emergency Provider Internal Medicine; Visit Provider Internal Medicine
DX: A41.9 Sepsis, unspecified organism (principal); N12 Tubulo-interstitial nephritis, not specified as acute or chronic; B96.20 Unspecified Escherichia coli [E. coli] as the cause of diseases classified elsewhere; Z20.828 Contact with and (suspected) exposure to other viral communicable diseases
CPT/HCPCS: 36415; 71045; 74176; 80048; 80076; 81001; 81025; 83605; 83735; 85025; 87040; 87086; 87088; 87186; 87633; 96361; 96365; 96375; 99218; 99284; 99285; J0696; J1885; J2270

== ENCOUNTER 2022-03-15 14:40 | Outpatient (REF) | payer MEDICAID, SELFPAY ==
--- NOTE | ~2022-03-15 | US_ITS ---
EXAMINATION: US SOFT TISSUE HEAD/NECK CLINICAL INFORMATION: Localized swelling, mass/lump, neck. COMPARISON: None TECHNIQUE: Linear transducer grayscale and color Doppler examination of the was performed in the region of a submental midline lump at neck level 1A, as indicated by the patient. US/US soft tiss head and/or neck FINDINGS/IMPRESSION: Examination in the region of interest demonstrates a 0.7 x 0.6 x 0.5 cm, smooth, ovoid, hypoechoic, hypervascular structure. No normal fatty hilum is seen to indicate that this represents a normal lymph node. This structure is not otherwise characterized. In addition, a lymph node in the region of interest as indicated by the patient measures 1.6 x 0.8 cm in transverse dimension by 0.5 cm in longitudinal dimension. It demonstrates a normal fatty hilum. However, it also appears hypervascular. Recommend clinical correlation and follow-up as clinically indicated. If further imaging is clinically desired, CT scan or MRI may be of use.
== END 2022-03-15 14:41 | disposition home or self-care (01) ==
LOC: HO.US 14:40
PROVIDERS: Visit Provider Family Medicine
DX: R22.1 Localized swelling, mass and lump, neck (principal)
CPT/HCPCS: 76536

== ENCOUNTER 2022-04-06 15:35 | Outpatient (REF) | payer MEDICAID, SELFPAY ==
--- NOTE | ~2022-04-06 | CT_ITS ---
EXAMINATION: CT SOFT TISSUE NECK WITH CONTRAST CLINICAL INFORMATION: Neck mass COMPARISON: None. TECHNIQUE: Following the administration of 60 mL of Omnipaque 300 intravenous contrast, helical imaging was performed in the axial plane with generation of coronal and sagittal reformatted images. This CT examination was performed using dose optimization techniques as appropriate, variously including the following: *Automated exposure control. *Adjustment of mA and/or kV according to patient size (this includes techniques or standardized protocols for targeted exams where dose is matched to indication/reason for exam; i.e. extremities or head). *Use of iterative reconstruction technique. DLP: 304 mGy-cm. FINDINGS: Nasopharynx/skull base: The fat planes of the skull base and soft tissues of the nasopharynx are unremarkable. The mastoid air cells are clear. There is mild maxillary sinus mucosal thickening. The temporomandibular joints are normal. Periapical lucency is noted involving a devitalized right mandibular first molar. Suprahyoid neck: The oropharynx and oral cavity are unremarkable. There are postsurgical changes from a left partial parotidectomy. There is nodular soft tissue in the left preauricular region measuring up to 9 x 18 x 10 mm (TR X CC X AP, series 3 image 17) as well as along the posterior parotid gland measuring 11 x 19 x 11 mm (TR X CC X AP, series 3 image 29). Infrahyoid neck: The hypopharynx and larynx are unremarkable. No aerodigestive tract mass. Thyroid: The thyroid gland is normal. Lymph nodes: Corresponding to a metallic skin marker, there is an adjacent enlarged submental lymph node measuring up to 1.2 cm short axis (series 3 image 51). Additionally, bilateral level 1B and 2A and 2B cervical lymph nodes are prominent in number and size. There is an enlarged left suboccipital lymph node (series 3 image 37). Prominent bilateral axillary lymph nodes are also noted. Lung apices: The partially visualized lung apices are clear. Vascular structures: No hemodynamically significant stenosis, dissection, or occlusion. Osseous structures: The osseous structures are intact without suspicious focal lesion. There are bilateral cervical ribs. Other: The imaged portions of the brain parenchyma are unremarkable. CT/CT soft tissue neck w IV con IMPRESSION: 1. Postsurgical changes from left partial parotidectomy. There is nodular soft tissue in the parotidectomy bed in the left preauricular region and along the posterior margin of the parotid gland, suspicious for recurrence. Recommend correlation with clinical history. 2. Palpable abnormality corresponds to an enlarged level 1A submental lymph node. There are additional mildly enlarged and prominent in number bilateral level 1B and level 2 lymph nodes as well as prominent bilateral axillary nodes which are indeterminant.
[2022-04-06] MEDS: iohexoL 350 MG/ML 100 ML INFUS..BTL IV (16:45)
== END 2022-04-06 15:36 | disposition home or self-care (01) ==
LOC: HO.CT 15:35
PROVIDERS: Visit Provider Family Medicine
DX: R22.1 Localized swelling, mass and lump, neck (principal)
CPT/HCPCS: 70491; Q9967

== ENCOUNTER 2023-05-19 09:41 | Outpatient (REF) | payer MEDICAID, SELFPAY ==
[2023-05-19 11:29] LABS: MANUAL DIFF FLAG NO
[2023-05-19 11:35] LABS: Basophils Percent Auto 0.4 % (0-2); Eosinophils Absolute Auto 0.1 X10*3/uL (0.0-0.4); Eosinophils Percent Auto 1.6 % (0-4); Hematocrit 36.8 % (37.0-47.0); Hemoglobin 12.3 g/dl (12.0-16.0); Imm Gran Abs Auto 0.02 X10*3/uL (0.00-0.03); Imm Gran Pct Auto 0.4 % (0.0-0.4); Lymphocytes Absolute Auto 1.1 X10*3/uL (1.2-4.9); Lymphocytes Percent Auto 19.2 % (20-40); Mean Corpuscular HGB Conc 33.4 g/dl (31.0-35.0); Mean Corpuscular Hemoglobin 31.2 pg (27.0-33.0); Mean Corpuscular Volume 93.4 fL (80.0-98.0); Mean Platelet Volume 9.3 fL (9.4-12.3); Monocytes Absolute Auto 0.4 X10*3/uL (0.1-1.2); Monocytes Percent Auto 6.9 % (2-11); Neutrophils Absolute Auto 3.9 x10*3/uL (2.0-8.3); Neutrophils Percent Auto 71.5 % (45-73); Platelet Count 214 X10*3/uL (160-400); Red Blood Count 3.94 X10*6/uL (4.20-5.50); Red Cell Distribution Width 12.3 % (11.0-16.0); White Blood Count 5.5 X10*3/uL (4.8-10.8)
[2023-05-19 11:52] LABS: Alanine Aminotransferase 9 U/L (0-31); Albumin Level 3.9 g/dL (3.5-5.0); Alkaline Phosphatase 48 U/L (39-117); Amylase 54 U/L (28-100); Anion Gap 10 (12-20); Aspartate Amino Transferase 11 U/L (5-31); Bilirubin Total 0.4 mg/dL (0.0-1.0); Blood Urea Nitrogen 7 mg/dL (9-16); Calcium 8.9 mg/dL (8.4-10.2); Carbon Dioxide 26 mmol/L (22-29); Chloride 105 mmol/L (96-108); Estimated Glomerular Filt Rate > 60; Glucose Random 113 mg/dL (60-115); Lipase 27 U/L (8-78); Potassium 3.7 mmol/L (3.3-5.1); Sodium 137 mmol/L (135-145); Total Protein 6.9 g/dL (6.5-8.0)
[2023-05-19 11:53] LABS: HCG Quantitative 3385 mIU/mL
== END 2023-05-19 09:42 | disposition home or self-care (01) ==
LOC: HO.HHCL 09:41
PROVIDERS: Visit Provider Family Medicine
DX: Z34.90 Encounter for supervision of normal pregnancy, unspecified, unspecified trimester (principal)
CPT/HCPCS: 36415; 80053; 82150; 83690; 84702; 85025